=== PATIENT | male | born 1985 | race Caucasian/White ===

== ENCOUNTER 2017-07-22 14:08 | Emergency (ER) | payer SELFPAY ==
[2017-07-22 15:10] VITALS: BP 122/80; PULSE 85; RESP 20; TEMP 37.1; O2SAT 96; BMI 25.2
--- NOTE | 2017-07-22 15:48 | HMH.EDUTC ---
[facility] [place] Disposition Clinical Impression: Hemorrhoid Qualifiers: Hemorrhoid type: unspecified Qualified Code(s): K64.9 - Unspecified hemorrhoids Disposition: Home, Self-Care Condition on Discharge: Good Prescriptions: Hydrocortisone [Anusol-Hc] 30 gm TP Q4H #1 crm.pe.briana Referrals: Matthew Mandel MD [Physician] - 3 days (if symptoms do not improve or worsen ) Time of Disposition: 16:06 Medical Decision Making Vital Signs: 07/22/17 15:10 Temperature 98.8 F Temperature Source Oral Pulse Rate [Right Brachial] 85 Respiratory Rate 20 Blood Pressure [Right Arm] 122/80 Blood Pressure Mean [Right Arm] 94 Blood Pressure Source [Right Arm] Automatic Cuff Blood Pressure Position [Right Arm] Sitting 02 Sat by Pulse Oximetry 96 Oxygen Delivery Method Room Air - Mikel Inquiry Pt receiving controlled substance: No Mikel was queried for this patient: No [facility] [place] HPI - General Stated complaint: hemoroid Time Seen by Provider: 07/22/17 15:54 Mode of Arrival: Ambulatory Source of Information: Patient Limitations: No Limitations Description of Symptoms (Recalled from Triage Doc. by RN): HEMORRHOIDS FOR 5 DAYS AND WON'T GO AWAY. HEENT Symptoms (Recalled from RN notes): No Resp Symptoms (Recalled from RN notes): No Skin Symptoms (Recalled from RN notes): No MS Symptoms (Recalled from RN notes): No Functional Status (Recalled from RN notes): NA - History of Present Illness Provider Complaint: Patient states that he has been having issues with itching,burning and pain associated with hemmorhoids that has been occuring for months now State that he had tried several things he had seen on the internet for comfort but nothing has worked so wanted to come in and get it checked Onset (ago): day(s) Radiation: non-radiation - Related Data Previous Rx's Medication Instructions Recorded Hydrocortisone [Anusol-Hc] 30 gm TP Q4H #1 crm.pe.briana 07/22/17 Allergies Allergy/AdvReac Type Severity Reaction Status Date / Time codeine [CODEINE] Allergy Mild Verified 07/22/17 15:17 Sulfa (Sulfonamide Allergy Mild Verified 07/22/17 15:16 Antibiotics) [SULFA (SULFONAMIDE ANTIBIOTICS)] - Worker's Comp Is this a Worker's Comp case?: No Is this an [facility] Worker's Comp?: No Is this a [place] Worker's Comp?: No [facility] History Medical History: Denies:: Cancer, Diabetes Mellitus Type 1, Diabetes Mellitus Type 2, MRSA Amputation: No Fractures: No - *Social History Smoking Status: Current every day smoker Tobacco Type: cigarettes Alcohol Intake: never - Psychiatric History Expresses thoughts of harming self/others: None Suicide Plan Description: No Plan Physical Exam - General General appearance: alert, in no apparent distress - Respiratory Respiratory exam: Present: normal lung sounds bilaterally. Absent: respiratory distress - Cardiovascular Cardiovascular exam: Present: regular rate, normal rhythm. Absent: JVD - Rectal Exam Rectal exam: Present: hemorrhoids comment: small hemmorhoid observed, skin colored no bleeding, no redness - Neurological Exam Neurological exam: Present: alert, oriented X3
--- NOTE | 2017-07-22 15:52 | ED_ITS ---
[facility] [place] Clinical Impression: Hemorrhoid Qualifiers: Hemorrhoid type: unspecified Qualified Code(s): K64.9 - Unspecified hemorrhoids Disposition: Home, Self-Care Condition on Discharge: Good Prescriptions: Hydrocortisone [Anusol-Hc] 30 gm TP Q4H #1 crm.pe.briana Referrals: Matthew Mandel MD [Physician] - 3 days (if symptoms do not improve or worsen ) Time of Disposition: 16:06 Medical Decision Making Vital Signs: 07/22/17 15:10 Temperature 98.8 F Temperature Source Oral Pulse Rate [Right Brachial] 85 Respiratory Rate 20 Blood Pressure [Right Arm] 122/80 Blood Pressure Mean [Right Arm] 94 Blood Pressure Source [Right Arm] Automatic Cuff Blood Pressure Position [Right Arm] Sitting 02 Sat by Pulse Oximetry 96 Oxygen Delivery Method Room Air - Mikel Inquiry Pt receiving controlled substance: No Mikel was queried for this patient: No [facility] [place] HPI - General Stated complaint: hemoroid Time Seen by Provider: 07/22/17 15:54 Mode of Arrival: Ambulatory Source of Information: Patient Limitations: No Limitations Description of Symptoms (Recalled from Triage Doc. by RN): HEMORRHOIDS FOR 5 DAYS AND WON'T GO AWAY. HEENT Symptoms (Recalled from RN notes): No Resp Symptoms (Recalled from RN notes): No Skin Symptoms (Recalled from RN notes): No MS Symptoms (Recalled from RN notes): No Functional Status (Recalled from RN notes): NA - History of Present Illness Provider Complaint: Patient states that he has been having issues with itching, burning and pain associated with hemmorhoids that has been occuring for months now State that he had tried several things he had seen on the internet for comfort but nothing has worked so wanted to come in and get it checked Onset (ago): day(s) Radiation: non-radiation - Related Data Previous Rx's Medication Instructions Recorded Hydrocortisone [Anusol-Hc] 30 gm TP Q4H #1 crm.pe.briana 07/22/17 Allergies Allergy/AdvReac Type Severity Reaction Status Date / Time codeine [CODEINE] Allergy Mild Verified 07/22/17 15:17 Sulfa (Sulfonamide Allergy Mild Verified 07/22/17 15:16 Antibiotics) [SULFA (SULFONAMIDE ANTIBIOTICS)] - Worker's Comp Is this a Worker's Comp case?: No Is this an [facility] Worker's Comp?: No Is this a [place] Worker's Comp?: No [facility] History Medical History: Denies:: Cancer, Diabetes Mellitus Type 1, Diabetes Mellitus Type 2, MRSA Amputation: No Fractures: No - *Social History Smoking Status: Current every day smoker Tobacco Type: cigarettes Alcohol Intake: never - Psychiatric History Expresses thoughts of harming self/others: None Suicide Plan Description: No Plan Physical Exam - General General appearance: alert, in no apparent distress - Respiratory Respiratory exam: Present: normal lung sounds bilaterally. Absent: respiratory distress - Cardiovascular Cardiovascular exam: Present: regular rate, normal rhythm. Absent: JVD - Rectal Exam Rectal exam: Present: hemorrhoids comment: small hemmorhoid observed, skin colored no bleeding, no redness - Neurological Exam Neurological exam: Present: alert, oriented X3
== END 2017-07-22 16:10 | disposition home or self-care (01) ==
PROVIDERS: Emergency Provider Nurse Practitioner
DX: K64.9 Unspecified hemorrhoids (principal); F17.210 Nicotine dependence, cigarettes, uncomplicated; Z88.2 Allergy status to sulfonamides; Z88.6 Allergy status to analgesic agent
CPT/HCPCS: 99201

== ENCOUNTER 2017-08-12 01:14 | Emergency (ER) | payer SELFPAY ==
[2017-08-12 01:16] VITALS: BP 150/90; PULSE 118; RESP 118; TEMP 36.9; O2SAT 98; BMI 22.7
--- NOTE | 2017-08-12 01:37 | PC.NURSE ---
poison controll called they advised symptomatic and supportive care fluids and benzos if needed for seizures or tachycardia.
[2017-08-12 02:09] VITALS: BP 145/92; PULSE 88; RESP 18; TEMP 36.8; O2SAT 100
[2017-08-12 02:29] LABS: Basophils % 0.6 % (0.1-2.0); Eosinophils # 0.1 K/mm3 (0.0-0.4); Eosinophils % 2.2 % (0.1-12.0); Hematocrit 43.3 % (42.0-52.0); Hemoglobin 14.9 g/dL (14.1-18.0); Lymphocytes # 1.2 K/mm3 (0.7-4.5); Lymphocytes % 25.5 K/mm3 (10-50); Mean Corpuscular HGB Conc 34.5 g/dL (31.8-35.4); Mean Corpuscular Hemoglobin 30.2 pg (27.0-31.2); Mean Corpuscular Volume 87.5 fl (80-94); Mean Platelet Volume 7.1 fl (7.4-10.4); Monocytes # 0.5 K/mm3 (0.1-1.0); Monocytes % 9.5 % (1.7-9.3); Neutrophils # 2.9 K/mm3 (1.8-7.8); Neutrophils % 62.3 % (37.0-80.0); Platelet Count 265 K/mm3 (142-424); Red Blood Count 4.95 M/mm3 (4.60-6.20); White Blood Count 4.7 K/mm3 (4.8-10.8)
--- NOTE | 2017-08-12 02:35 | HMH.EDOD ---
ED Disposition Clinical Impression: Drug abuse, episodic use Disposition: Home, Self-Care Condition on Discharge: Good Instructions: DI for Drug Overdose in Adults Additional Instructions: see rehab center for follow up - Critical Care Critical Care Time: No Attestation: On , the high probability of a clinically significant, sudden or life threatening deterioration of the following system(s) required my full and direct attention, intervention and personal management. The time I documented below is in addition to time spent performing reported procedures but includes the following listed in this critical care notation. Medical Decision Making - Medical Records Medical records reviewed: Yes: I reviewed the patient's medical records. Vital Signs: 08/12/17 01:16 08/12/17 02:09 08/12/17 04:33 Temperature 98.5 F 98.2 F 98.3 F Temperature Source Oral Oral Oral Pulse Rate [Right] 118 H 88 89 Respiratory Rate 118 H 18 18 Blood Pressure [Right Arm] 150/90 145/92 134/88 Blood Pressure Mean [Right Arm] 110 109 103 Blood Pressure Source [Right Arm] Automatic Cuff Automatic Cuff Automatic Cuff Blood Pressure Position [Right Arm] Sitting Sitting 02 Sat by Pulse Oximetry 98 100 100 Oxygen Delivery Method Room Air Room Air Room Air - Lab Data Lab results reviewed: Yes: I reviewed the patient's lab results. Lab Results 08/12/17 02:20: WBC 4.7 L, RBC 4.95, Hgb 14.9, Hct 43.3, MCV 87.5, MCH 30.2, MCHC 34.5, RDW 13.0, Plt Count 265, MPV 7.1 L, Neut % (Auto) 62.3, Lymph % (Auto) 25.5, [place] % (Auto) 9.5 H, Eos % (Auto) 2.2, Baso % (Auto) 0.6, Neut # (Auto) 2.9, Lymph # (Auto) 1.2, [place] # (Auto) 0.5, Eos # (Auto) 0.1, Baso # (Auto) 0.0 08/12/17 02:20: Sodium 136, Potassium 3.2 L, Chloride 100, Carbon Dioxide 25, Anion Gap 14.2, BUN 12, Creatinine 1.02, Estimated Creat Clear 98, Estimated GFR 85, Est GFR ( Amer) 103, Glucose 110 H, Calcium 8.8, Total Bilirubin 0.6, AST 21, ALT 31, Alkaline Phosphatase 67, Total Protein 7.1, Albumin 4.0, Globulin 3.1, Albumin/Globulin Ratio 1.3, Plasma/Serum Alcohol 0 08/12/17 02:20: Total Creatine Kinase 186, CK-MB (CK-2) 3.0, CK-MB (CK-2) Rel Index 1.6, Troponin I < 0.02 08/12/17 02:32: Urine Opiates Screen Negative, Ur Barbituates Screen Negative, Ur Phencyclidine Scrn Negative, Ur Amphetamines Screen Positive H, U Methamphetamines Scrn Negative, U Benzodiazepines Scrn Negative, Urine Cocaine Screen Negative, U Marijuana (THC) Screen Positive H 08/12/17 02:32: Urine Color Dark yellow, Urine Appearance Clear, Urine pH 6.0, Ur Specific [place] >= 1.030, Urine Protein Negative, Urine Glucose (UA) Negative, Urine Ketones Negative, Urine Blood Negative, Urine Nitrate Negative, Urine Bilirubin Negative, Urine Urobilinogen 1.0, Ur Leukocyte Esterase Negative Result diagrams: 08/12/17 02:20 08/12/17 02:20 Orders (Tests/Meds): ED MEDICATIONS Discontinued Medications Generic Name Dose Route Start Last Admin Trade Name Freq PRN Reason Stop Dose Admin Sodium Chloride 1,000 mls @ 999 mls/hr 08/12/17 01:45 08/12/17 01:51 Sod Chloride 0.9% 1000ml Bag IV 08/12/17 02:45 999 mls/hr .Q1H1M THAO Administration ORDERS Category Date Time Status UA [Urinalysis and Microscopic] Stat Lab 08/12/17 02:32 Results - Mikel Inquiry Pt receiving controlled substance: No Overdose HPI - General Chief Complaint: Overdose Stated Complaint: OVERDOSE Time Seen by Provider: 08/12/17 02:36 Mode of Arrival: Ambulatory Source of Information: Patient, Parent(s), Medical Record Limitations: No Limitations Description of Symptoms (Recalled from ER Triage Doc. by RN): PT REPORTS HE SNORTED METH AT 1145 PM, AND SINCE THEN HIS HEART HAS BEEN RACING, CHEST ACHING, BODY GOING NUMB, AND HIGH ANXIETY - History of Present Illness HPI Narrative: pt with recent use of nasal meth with inc anxiety and inc hr w/o chest pain or syncope MD complaint: other (use of illeg drug ) Onset (ago): hour(s
[2017-08-12 02:39] LABS: Microscopic, Urine URINE MICROSCOPIC (MICROSCOPIC)
--- NOTE | 2017-08-12 02:39 | ED_ITS ---
ED Disposition Clinical Impression: Drug abuse, episodic use Disposition: Home, Self-Care Condition on Discharge: Good Instructions: DI for Drug Overdose in Adults Additional Instructions: see rehab center for follow up - Critical Care Critical Care Time: No Attestation: On , the high probability of a clinically significant, sudden or life threatening deterioration of the following system(s) required my full and direct attention, intervention and personal management. The time I documented below is in addition to time spent performing reported procedures but includes the following listed in this critical care notation. Medical Decision Making - Medical Records Medical records reviewed: Yes: I reviewed the patient's medical records. Vital Signs: 08/12/17 01:16 08/12/17 02:09 08/12/17 04:33 Temperature 98.5 F 98.2 F 98.3 F Temperature Source Oral Oral Oral Pulse Rate [Right] 118 H 88 89 Respiratory Rate 118 H 18 18 Blood Pressure [Right Arm] 150/90 145/92 134/88 Blood Pressure Mean [Right Arm] 110 109 103 Blood Pressure Source [Right Arm] Automatic Cuff Automatic Cuff Automatic Cuff Blood Pressure Position [Right Arm] Sitting Sitting 02 Sat by Pulse Oximetry 98 100 100 Oxygen Delivery Method Room Air Room Air Room Air - Lab Data Lab results reviewed: Yes: I reviewed the patient's lab results. Lab Results 08/12/17 02:20: WBC 4.7 L, RBC 4.95, Hgb 14.9, Hct 43.3, MCV 87.5, MCH 30.2, MCHC 34.5, RDW 13.0, Plt Count 265, MPV 7.1 L, Neut % (Auto) 62.3, Lymph % (Auto ) 25.5, [place] % (Auto) 9.5 H, Eos % (Auto) 2.2, Baso % (Auto) 0.6, Neut # (Auto) 2.9, Lymph # (Auto) 1.2, [place] # (Auto) 0.5, Eos # (Auto) 0.1, Baso # (Auto) 0.0 08/12/17 02:20: Sodium 136, Potassium 3.2 L, Chloride 100, Carbon Dioxide 25, Anion Gap 14.2, BUN 12, Creatinine 1.02, Estimated Creat Clear 98, Estimated GFR 85, Est GFR ( Amer) 103, Glucose 110 H, Calcium 8.8, Total Bilirubin 0.6, AST 21, ALT 31, Alkaline Phosphatase 67, Total Protein 7.1, Albumin 4.0, Globulin 3.1, Albumin/Globulin Ratio 1.3, Plasma/Serum Alcohol 0 08/12/17 02:20: Total Creatine Kinase 186, CK-MB (CK-2) 3.0, CK-MB (CK-2) Rel Index 1.6, Troponin I < 0.02 08/12/17 02:32: Urine Opiates Screen Negative, Ur Barbituates Screen Negative, Ur Phencyclidine Scrn Negative, Ur Amphetamines Screen Positive H, U Methamphetamines Scrn Negative, U Benzodiazepines Scrn Negative, Urine Cocaine Screen Negative, U Marijuana (THC) Screen Positive H 08/12/17 02:32: Urine Color Dark yellow, Urine Appearance Clear, Urine pH 6.0, Ur Specific [place] >= 1.030, Urine Protein Negative, Urine Glucose (UA) Negative, Urine Ketones Negative, Urine Blood Negative, Urine Nitrate Negative, Urine Bilirubin Negative, Urine Urobilinogen 1.0, Ur Leukocyte Esterase Negative Result diagrams: 08/12/17 02:20 08/12/17 02:20 Orders (Tests/Meds): ED MEDICATIONS Discontinued Medications Generic Name Dose Route Start Last Admin Trade Name Freq PRN Reason Stop Dose Admin Sodium Chloride 1,000 mls @ 999 mls/hr 08/12/17 01:45 08/12/17 01:51 Sod Chloride 0.9% 1000ml Bag IV 08/12/17 02:45 999 mls/hr .Q1H1M THAO Administration ORDERS Category Date Time Status UA [Urinalysis and Microscopic] Stat Lab 08/12/17 02:32 Results - Mikel Inquiry Pt receiving controlled substance: No Overdose HPI - General Chief Complaint: Overdose S
[2017-08-12 02:41] LABS: Alanine Aminotransferase 31 U/L (12-78); Albumin/Globulin Ratio 1.3 (1.1-1.8); Alkaline Phosphatase 67 U/L (46-116); Anion Gap 14.2 mEq/L (5-15); Aspartate Amino Transferase 21 U/L (15-37); Bilirubin,Total 0.6 mg/dL (0.2-1.0); Blood Urea Nitrogen 12 mg/dL (7-18); Calcium 8.8 mg/dL (8.5-10.1); Carbon Dioxide 25 mmol/L (21.0-32.0); Chloride 100 mmol/L (98-107); Creatinine Clearance Estimated 98 mL/min (0-300); Creatinine,Serum 1.02 mg/dL (0.70-1.30); Estimated Glomerular Filt Rate 85 ml/min (>60); GFR (African American) 103 ML/MIN (>60); Globulin 3.1 gm/dl (1.3-3.2); Glucose 110 mg/dL (74-106); Potassium 3.2 mmoL/L (3.5-5.1); Sodium 136 mmol/L (136-145); Total Protein,Serum 7.1 gm/dL (6.4-8.2)
[2017-08-12 02:46] LABS: Ethyl Alcohol 0 mg/dL (0-99)
[2017-08-12 02:55] LABS: Appearance,Urine CLEAR (Clear); Bilirubin,Urine Negative (Negative); Blood, Urine Negative (Negative); Glucose,Urine (UA) Negative (Negative); Ketones,Urine Negative (Negative); Leukocyte Esterase,Urine Negative (Negative); Nitrate,Urine Negative (Negative); Protein,Urine Negative (Negative); Specific Gravity, Urine >= 1.030 (1.005-1.030)
[2017-08-12 02:57] LABS: Color,Urine Dark Yellow (Yellow)
[2017-08-12 02:57] LABS: CKMB Relative Index 1.6 U/L (0-4.0); Creatine Kinase 186 U/L (39-308); Troponin I < 0.02 ng/ml (0.00-0.06)
[2017-08-12 03:00] LABS: Amphetamine/Metha Screen,Urine Positive ng/mL (<1000); Barbiturates Screen,Urine Negative ng/mL (<200); Benzodiazepines Screen,Urine Negative ng/mL (200); Cannabinoid Screen,Urine Positive ng/mL (<50); Cocaine Screen,Urine Negative ng/g (<300); Methadone Screen,Urine Negative ng/mL (<300); Opiate Screen,Urine Negative ng/mL (<300); Phencyclidine Screen,Urine Negative ng/mL (<25)
--- NOTE | 2017-08-12 04:30 | PC.NURSE ---
POISON CONTROL CALLED TO CHECK ON PT
[2017-08-12 04:33] VITALS: BP 134/88; PULSE 89; RESP 18; TEMP 36.8; O2SAT 100
[2017-08-12 05:20] LABS: Bacteria,Urine 1+ /lpf
== END 2017-08-12 05:07 | disposition home or self-care (01) ==
PROVIDERS: Emergency Provider Emergency Medicine
DX: T43.622A Poisoning by amphetamines, intentional self-harm, initial encounter (principal); T40.7X2A Poisoning by cannabis (derivatives), intentional self-harm, initial encounter; F41.9 Anxiety disorder, unspecified; R00.0 Tachycardia, unspecified; F17.210 Nicotine dependence, cigarettes, uncomplicated; Z88.2 Allergy status to sulfonamides; Z88.6 Allergy status to analgesic agent
CPT/HCPCS: 80053; 80305; 81001; 82550; 82553; 84484; 85025; 96365; 99284

== ENCOUNTER 2017-09-22 12:22 | Emergency (ER) | payer SELFPAY ==
[2017-09-22 12:45] VITALS: BP 138/89; PULSE 61; RESP 20; TEMP 36.8; O2SAT 98; BMI 25.0
--- NOTE | 2017-09-22 12:55 | HMH.EDUTC ---
[facility] [place] Disposition Clinical Impression: URI (upper respiratory infection) Qualifiers: URI type: unspecified URI Qualified Code(s): J06.9 - Acute upper respiratory infection, unspecified Disposition: Home, Self-Care Condition on Discharge: Good Instructions: Sore Throat, DI for Cough -- Adult Additional Instructions: * Monitor Temp. Tylenol and/or Ibuprofen as needed. ER if fever is no less than 101 despite alternating Tylenol and Ibuprofen * Encourage fluids, water, Gatorade, powerade, pedialyte if /toddler/or child * Warm salt water gargles for throat irritation *Warm fluids *Sore throat lozenges *Sleep elevated *humidifier or vaporizer Lots of rest Increase fluids, water, Gatorade, powerade *Flonase 2 sprays each nostril daily but may take 2-3 days to notice improvement with it *Bromfed may cause drowsiness. Know how it effect you or your child. Before driving, caring for small children or sending your child to school *Your throat swab was sent to lab for culture. Those results area typically sent to your primary care physician. Be sure to follow up in 2-3 days if no improvement so they can review those results and treat if necessary If you dont have primary care I recommend you get one, but in the mean time you will have to return to a walk in clinic Follow up IMMEDIATELY for new or worsening of symptoms OR no noticeable improvement over the next 48-72 hours. 911 immediately for any life threatening symptoms such as chest pain or difficulty breathing Prescriptions: Promethazine/Dextromethorphan [Promethazine-Dm Syrup] 5 ml PO Q4HP PRN #300 ml MDD 30ML/DAY PRN Reason: Cough Azithromycin [Z-Raz 250mg Tab] 250 mg PO UD DOSE PK #6 tab predniSONE [Prednisone 20mg Tab] 20 mg PO BID #10 tab Forms: Work/School Release Time of Disposition: 13:14 Medical Decision Making - Medical Records Medical records reviewed: Yes: I reviewed the patient's medical records. Vital Signs: 09/22/17 12:45 Temperature 98.2 F Temperature Source Temporal Artery Scan Pulse Rate [Brachial] 61 Respiratory Rate 20 Blood Pressure [Right Arm] 138/89 Blood Pressure Mean [Right Arm] 105 Blood Pressure Source [Right Arm] Automatic Cuff Blood Pressure Position [Right Arm] Sitting 02 Sat by Pulse Oximetry 98 Oxygen Delivery Method Room Air - Lab Data Lab results reviewed: Yes: I reviewed the patient's lab results. - Mikel Inquiry Pt receiving controlled substance: No Mikel was queried for this patient: No - Reevaluation(s) Time: 13:12 Reevaluation #1: Flu swab negative [facility] [place] HPI - General Stated complaint: weak,chest congestion Mode of Arrival: Ambulatory Source of Information: Patient Limitations: No Limitations Description of Symptoms (Recalled from Triage Doc. by RN): BODY FATIGUE, COUGHING AND BURNING IN CHEST 1.5 DAYS HEENT Symptoms (Recalled from RN notes): Yes Resp Symptoms (Recalled from RN notes): Yes Skin Symptoms (Recalled from RN notes): No MS Symptoms (Recalled from RN notes): No Functional Status (Recalled from RN notes): NA - History of Present Illness Provider Complaint: Patient state that he has been having cough, sore throat sinus congestion and drainage State that daughter recently had the flu and he has an infant at home and was worried that he may have it State that he has been having body aches and headaches State that he is unsure if he has had fever or not - Related Data Previous Rx's Medication Instructions Recorded Azithromycin [Z-Raz 250mg Tab] 250 mg PO UD DOSE PK #6 tab 09/22/17 Promethazine/Dextromethorphan 5 ml PO Q4HP PRN #300 ml MDD 09/22/17 [Promethazine-Dm Syrup] 30ML/DAY predniSONE [Prednisone 20mg 20 mg PO BID #10 tab 09/22/17 Tab] Allergies Allergy/AdvReac Type Severity Reaction Status Date / Time codeine [CODEINE] Allergy Mild Verified 07/22/17 15:17 Sulfa (Sulfonamide Allergy Mild Verified 07/22/17 15:16 Antibiotics) [SULFA (SULFONAMIDE ANTIB
--- NOTE | 2017-09-22 13:01 | ED_ITS ---
[facility] [place] Impression: URI (upper respiratory infection) Qualifiers: URI type: unspecified URI Qualified Code(s): J06.9 - Acute upper respiratory infection, unspecified Disposition: Home, Self-Care Condition on Discharge: Good Instructions: Sore Throat, DI for Cough -- Adult Additional Instructions: * Monitor Temp. Tylenol and/or Ibuprofen as needed. ER if fever is no less than 101 despite alternating Tylenol and Ibuprofen * Encourage fluids, water, Gatorade, powerade, pedialyte if /toddler/or child * Warm salt water gargles for throat irritation *Warm fluids *Sore throat lozenges *Sleep elevated *humidifier or vaporizer Lots of rest Increase fluids, water, Gatorade, powerade *Flonase 2 sprays each nostril daily but may take 2-3 days to notice improvement with it *Bromfed may cause drowsiness. Know how it effect you or your child. Before driving, caring for small children or sending your child to school *Your throat swab was sent to lab for culture. Those results area typically sent to your primary care physician. Be sure to follow up in 2-3 days if no improvement so they can review those results and treat if necessary If you don? t have primary care I recommend you get one, but in the mean time you will have to return to a walk in clinic Follow up IMMEDIATELY for new or worsening of symptoms OR no noticeable improvement over the next 48-72 hours. 911 immediately for any life threatening symptoms such as chest pain or difficulty breathing Prescriptions: Promethazine/Dextromethorphan [Promethazine-Dm Syrup] 5 ml PO Q4HP PRN #300 ml MDD 30ML/DAY PRN Reason: Cough Azithromycin [Z-Raz 250mg Tab] 250 mg PO UD DOSE PK #6 tab predniSONE [Prednisone 20mg Tab] 20 mg PO BID #10 tab Forms: Work/School Release Time of Disposition: 13:14 Medical Decision Making - Medical Records Medical records reviewed: Yes: I reviewed the patient's medical records. Vital Signs: 09/22/17 12:45 Temperature 98.2 F Temperature Source Temporal Artery Scan Pulse Rate [Brachial] 61 Respiratory Rate 20 Blood Pressure [Right Arm] 138/89 Blood Pressure Mean [Right Arm] 105 Blood Pressure Source [Right Arm] Automatic Cuff Blood Pressure Position [Right Arm] Sitting 02 Sat by Pulse Oximetry 98 Oxygen Delivery Method Room Air - Lab Data Lab results reviewed: Yes: I reviewed the patient's lab results. - Mikel Inquiry Pt receiving controlled substance: No Mikel was queried for this patient: No - Reevaluation(s) Time: 13:12 Reevaluation #1: Flu swab negative [facility] [place] - General Stated complaint: weak,chest congestion Mode of Arrival: Ambulatory Source of Information: Patient Limitations: No Limitations Description of Symptoms (Recalled from Triage Doc. by RN): BODY FATIGUE, COUGHING AND BURNING IN CHEST 1.5 DAYS HEENT Symptoms (Recalled from RN notes): Yes Resp Symptoms (Recalled from RN notes): Yes Skin Symptoms (Recalled from RN notes): No MS Symptoms (Recalled from RN notes): No Functional Status (Recalled from RN notes): NA - History of Present Illness Provider Complaint: Patient state that he has been having cough, sore throat sinus congestion and drainage State that daughter recently had the flu and he has an at home and was worried that he may have it State that he has been having body aches and headaches State that he is unsure if he has had fever or not - Related Data Previous Rx's
[2017-09-22 13:15] LABS: UTC Influenza A Antigen Negative (Negative); UTC Influenza B Antigen Negative (Negative)
[2017-09-22 13:24] VITALS: BP 138/89; PULSE 69; RESP 20; TEMP 36.8; O2SAT 98
== END 2017-09-22 13:25 | disposition home or self-care (01) ==
PROVIDERS: Emergency Provider Nurse Practitioner
DX: J06.9 Acute upper respiratory infection, unspecified (principal); F17.210 Nicotine dependence, cigarettes, uncomplicated; Z88.2 Allergy status to sulfonamides
CPT/HCPCS: 87804; 99202

== ENCOUNTER 2019-11-18 13:05 | Emergency (ER) | payer OTHER, SELFPAY ==
[2019-11-18 13:24] VITALS: BP 116/78; PULSE 83; RESP 16; TEMP 36.7; O2SAT 94; BMI 26.4
--- NOTE | 2019-11-18 13:47 | HMH.EDUTC ---
[facility] [place] Disposition Clinical Impression: Right arm cellulitis Disposition: Home, Self-Care Condition on Discharge: Good Instructions: Cellulitis Additional Instructions: Keep the wounds clean and dry. Follow up with your regular doctor. Take the antibiotics as directed and apply the topical antibiotics as directed. Watch the wound for signs of worsening infection, such as worsening redness, drainage, swelling, etc. GO TO THE ER FOR ANY WORSENING SYMPTOMS Prescriptions: Mupirocin [Bactroban 2% Ointment 22gm tube] 1 applicatio TP TID 7 Days #1 tube Transmission Status: Received by [facility] clindamycin HCL [Clindamycin HCl 300mg Cap] 300 mg PO Q6 10 Days #40 cap Transmission Status: Received by [facility] Referrals: Provider,ReferralMD [Primary Care Provider] - Time of Disposition: 13:51 Medical Decision Making - Medical Records Medical records reviewed: No: I reviewed the patient's medical records. - Mikel Inquiry Pt receiving controlled substance: No Vital Signs: 11/18/19 13:24 11/18/19 14:01 Temperature 98.1 F 98.1 F Temperature Source Oral Pulse Rate 83 Pulse Rate [Right Brachial] 83 Respiratory Rate 16 16 Blood Pressure 116/78 Blood Pressure [Right Arm] 116/78 Blood Pressure Mean [Right Arm] 90 Blood Pressure Source [Right Arm] Automatic Cuff Blood Pressure Position [Right Arm] Sitting 02 Sat by Pulse Oximetry 94 L Oxygen Delivery Method Room Air Orders (Tests/Meds): ED MEDICATIONS Discontinued Medications Generic Name Dose Route Start Last Admin Trade Name Freq PRN Reason Stop Dose Admin Ceftriaxone Sodium 1 gm 11/18/19 13:31 11/18/19 13:40 Rocephin 1gm Vial IM 11/18/19 13:32 1 gm ONCE ONE Administration Protocol Lidocaine HCl 0 ml 11/18/19 13:31 11/18/19 13:40 Lidocaine 1% 10ml Mdv IM 11/18/19 13:32 2.1 ml ONCE ONE Administration ORDERS Category Date Time Status Wound Culture and Gram Stain Stat Micro 11/18/19 13:20 Results [facility] [place] HPI - General Stated complaint: spot on R arm Time Seen by Provider: 11/18/19 13:47 Mode of Arrival: Ambulatory Source of Information: Patient Limitations: No Limitations Description of Symptoms (Recalled from Triage Doc. by RN): PATIENT STATES HE ACCIDENTALY SCRATCHED HIS ARM ON A NAIL 3 DAYS AGO; STATES HE HAS PLAYED WITH IT AND SCRATCHED IT AND NOW IT IS INFECTED. PURULENT DRAINAGE IS NOTED. DENIES FEVER. PATIENT STATES HE IS UP TO DATE ON HIS TETANUS VACCINE HEENT Symptoms (Recalled from RN notes): No Resp Symptoms (Recalled from RN notes): No Skin Symptoms (Recalled from RN notes): Yes MS Symptoms (Recalled from RN notes): No Functional Status (Recalled from RN notes): WNL - History of Present Illness Provider Complaint: He states that 3 days ago he bumped into a nail on his wall at home with his right arm. Since then the wound has became red around it and it has began draining clear drainage. He denies any fever or chills. - Related Data Previous Rx's Medication Instructions Recorded Mupirocin [Bactroban 2% Ointment 1 applicatio TP TID 7 Days #1 tube 11/18/19 22gm tube] clindamycin HCL [Clindamycin HCl 300 mg PO Q6 10 Days #40 cap 11/18/19 300mg Cap] Allergies Allergy/AdvReac Type Severity Reaction Status Date / Time codeine [CODEINE] Allergy Mild Verified 07/22/17 15:17 Sulfa (Sulfonamide Allergy Mild Verified 07/22/17 15:16 Antibiotics) [SULFA (SULFONAMIDE ANTIBIOTICS)] - Worker's Comp Is this a Worker's Comp case?: No H History - Hepatitis A Screen Drug use history?: No High risk sexual behaviors?: No History of sexually transmitted infection?: No Currently employed?: No Childcare worker?: No Do you have indoor plumbing?: Yes Do you have electricity?: Yes Attestation statement:: This patient has been screened for Hepatitis A risk factors. I have reviewed the patient's past medical h
[2019-11-18 14:01] VITALS: BP 116/78; PULSE 83; RESP 16; TEMP 36.7; O2SAT 94
== END 2019-11-18 14:01 | disposition home or self-care (01) ==
PROVIDERS: Emergency Provider Nurse Practitioner Family
DX: L03.113 Cellulitis of right upper limb (principal)
CPT/HCPCS: 87070; 87077; 87186; 87205; 96372; 99202

== ENCOUNTER 2020-01-15 00:45 | Emergency (ER) | payer OTHER, SELFPAY ==
[2020-01-15 00:52] VITALS: BP 137/86; PULSE 73; RESP 16; TEMP 37.2; O2SAT 99; BMI 27.3
--- NOTE | 2020-01-15 01:00 | HMH.EDMCLR ---
ED Disposition Clinical Impression: Medical clearance for incarceration Disposition: Home, Self-Care Condition on Discharge: Good Instructions: DI for Drug or Alcohol Withdrawal Additional Instructions: see pcp for follow up Referrals: Provider,Referral, [Primary Care Provider] - - Critical Care Critical Care Time: No Attestation: On 01/15/20, the high probability of a clinically significant, sudden or life threatening deterioration of the following system(s) required my full and direct attention, intervention and personal management. The time I documented below is in addition to time spent performing reported procedures but includes the following listed in this critical care notation. Medical Decision Making - Medical Records Medical records reviewed: Yes: I reviewed the patient's medical records. - Mikel Inquiry Pt receiving controlled substance: No Vital Signs: 01/15/20 00:52 Temperature 98.9 F Temperature Source Oral Pulse Rate [Right] 73 Respiratory Rate 16 Blood Pressure [Right Arm] 137/86 Blood Pressure Mean [Right Arm] 103 Blood Pressure Source [Right Arm] Automatic Cuff Blood Pressure Position [Right Arm] Sitting 02 Sat by Pulse Oximetry 99 Oxygen Delivery Method Room Air Medical Clearance HPI - General Stated complaint: Medical Clearance Time Seen by Provider: 01/15/20 01:01 Mode of Arrival: Ambulatory Source of Information: Patient Limitations: No Limitations Description of Symptoms (Recalled from ER Triage Doc. by RN): Here via S.O. for medical Clearance - History of Present Illness HPI Narrative: no specific c/o he has no sx but says he known a sanjeev who went to [place] but not known to have jamesid complaint: medical clearance requested Onset (ago): hour(s) Reason for Medical Clearance: medical condition Place: home Alleged Intoxication: No Traumatic Symptoms: denies traumatic injury Associated Symptoms: denies other symptoms Treatments Prior to Arrival: none Home medications: Previous Rx's Medication Instructions Recorded Mupirocin [Bactroban 2% Ointment 1 applicatio TP TID 7 Days #1 tube 11/18/19 22gm tube] clindamycin HCL [Clindamycin HCl 300 mg PO Q6 10 Days #40 cap 11/18/19 300mg Cap] Allergies/Adverse reactions: Allergies Allergy/AdvReac Type Severity Reaction Status Date / Time codeine [CODEINE] Allergy Mild Verified 07/22/17 15:17 Sulfa (Sulfonamide Allergy Mild Verified 07/22/17 15:16 Antibiotics) [SULFA (SULFONAMIDE ANTIBIOTICS)] [facility] History - Hepatitis A Screen Drug use history?: No High risk sexual behaviors?: No History of sexually transmitted infection?: No Currently employed?: No Childcare worker?: No Do you have indoor plumbing?: Yes Do you have electricity?: Yes Attestation statement:: This patient has been screened for Hepatitis A risk factors. I have reviewed the patient's past medical history: Yes Medical History: Denies:: Cancer, Diabetes Mellitus Type 1, Diabetes Mellitus Type 2, MRSA Laterality Cases: Bilateral: Myringotomy (Ear Tubes), Tonsillectomy Amputation: No Fractures: No - Social History Smoking Status: Current every day smoker Tobacco Type: cigarettes # Packs/Day (cigarettes): 2 Alcohol Intake: never Alcohol Intake Frequency:: holidays/special occasions only Substance Use Type: heroin Last Used Substance: just [employer] Occupational Status: unemployed Housing: house ROS Obtained: Yes All systems reviewed & no additional complaints - Constitutional Constitutional: Denies fever(s) - Eyes Eyes: Denies change in vision - ENT Ears, Nose, Mouth, and Throat: Denies sore throat - Cardiovascular Cardiovascular: Denies chest pain - Respiratory Respiratory: No cough - Gastrointestinal Gastrointestingal: Denies: vomiting - Genitourinary Male Genitourinary: Denies flank pain - Musculoskeletal Musculoskeletal: Denies joint pain - Integumentary/Breasts Skin
[2020-01-15 01:12] VITALS: BP 137/86; PULSE 73; RESP 16; TEMP 37.2; O2SAT 99
== END 2020-01-15 01:13 | disposition home or self-care (01) ==
PROVIDERS: Emergency Provider Emergency Medicine
DX: Z00.8 Encounter for other general examination (principal)
CPT/HCPCS: 99282

== ENCOUNTER 2020-04-03 10:45 | Emergency (ER) | payer OTHER, SELFPAY ==
[2020-04-03 10:54] VITALS: BP 150/71; PULSE 81; RESP 19; TEMP 36.6; O2SAT 98; BMI 27.3
--- NOTE | 2020-04-03 11:03 | HMH.EDUTC ---
[facility] [place] Impression: Bitten by other birds, initial encounter, Cellulitis of finger of left hand, Cellulitis of finger of right hand Disposition: Home, Self-Care Condition on Discharge: Good Instructions: Cellulitis Additional Instructions: Keep the wounds clean and dry. Follow up with your primary care physician. Apply the topical antibiotic cream as directed. Watch the wounds for signs of worsening infection, such as worsening swelling, drainage, redness, etc. GO TO THE ER FOR ANY WORSENING SYMPTOMS OR CONCERNS Prescriptions: Amoxicillin/Potassium Clav [Augmentin 875-125 Tablet] 1 tab PO Q12H 10 Days #20 tab Transmission Status: [facility] Mupirocin [Bactroban 2% Ointment 22gm tube] 1 applicatio TP TID 7 Days #1 tube Transmission Status: Received by [facility] Doxycycline Hyclate [Doxycycline 100mg Capsule] 100 mg PO Q12 10 Days #20 cap Transmission Status: Received by [facility] Referrals: PCP,No [Primary Care Provider] - Time of Disposition: 11:21 Medical Decision Making - Medical Records Medical records reviewed: No: I reviewed the patient's medical records. - Mikel Inquiry Pt receiving controlled substance: No Vital Signs: 04/03/20 10:54 04/03/20 11:25 Temperature 97.9 F 97.9 F Temperature Source Oral Pulse Rate 81 Pulse Rate [Right Brachial] 81 Respiratory Rate 19 19 Blood Pressure 150/71 H Blood Pressure [Right Arm] 150/71 H Blood Pressure Mean [Right Arm] 97 Blood Pressure Source [Right Arm] Automatic Cuff Blood Pressure Position [Right Arm] Sitting 02 Sat by Pulse Oximetry 98 Oxygen Delivery Method Room Air Orders (Tests/Meds): ED MEDICATIONS Discontinued Medications Generic Name Dose Route Start Last Admin Trade Name Freq PRN Reason Stop Dose Admin Ceftriaxone Sodium 1 gm 04/03/20 11:03 04/03/20 11:17 Rocephin 1gm Vial IM 04/03/20 11:04 1 gm ONCE ONE Administration Protocol Lidocaine HCl 0 ml 04/03/20 11:03 04/03/20 11:17 Lidocaine 1% 10ml Mdv IM 04/03/20 11:04 2.1 ml ONCE ONE Administration ORDERS Category Date Time Status Wound Culture and Gram Stain Stat Micro 04/03/20 11:30 Results [facility] [place] - General Stated complaint: chicken bite on thumb Time Seen by Provider: 04/03/20 10:55 Mode of Arrival: Ambulatory Source of Information: Patient Limitations: No Limitations Description of Symptoms (Recalled from Triage Doc. by RN): PATIENT C/O CHICKEN BITE TO RIGHT THUMB AND SWELLING/PAIN TO LEFT THUMB (NO KNOWN INJURY). BOTH OCCURED FRIDAY HEENT Symptoms (Recalled from RN notes): No Resp Symptoms (Recalled from RN notes): No Skin Symptoms (Recalled from RN notes): Yes MS Symptoms (Recalled from RN notes): No Functional Status (Recalled from RN notes): WNL - History of Present Illness Provider Complaint: He states that 3 to 4 days ago he was attacked by his rooster. It bit on his right and left thumbs. He thought the wounds would be ok and heal, but since yesterday the wounds have began to swell and have clear drainage. He denies any other injury. He is not diabetic that he knows of. He states that it has been less than 5 years since the last time he had a tetanus immunization. - Related Data Previous Rx's Medication Instructions Recorded Amoxicillin/Potassium Clav 1 tab PO Q12H 10 Days #20 tab 04/03/20 [Augmentin 875-125 Tablet] Doxycycline Hyclate [Doxycycline 100 mg PO Q12 10 Days #20 cap 04/03/20 100mg Capsule] Mupirocin [Bactroban 2% Ointment 1 applicatio TP TID 7 Days #1 tube 04/03/20 22gm tube] Allergies Allergy/AdvReac Type Severity Reaction Status Date / Time codeine [CODEINE] Allergy Mild Verified 07/22/17 15:17 Sulfa (Sulfonamide Allergy Mild Verified 07/22/17 15:16 Antibiotics) [SULFA (SULFONAMIDE ANTIBIOTICS)] - Worker's Comp Is this a Worker's Comp case?: No [facility] History - He
[2020-04-03 11:25] VITALS: BP 150/71; PULSE 81; RESP 19; TEMP 36.6; O2SAT 98
== END 2020-04-03 11:27 | disposition home or self-care (01) ==
PROVIDERS: Emergency Provider Nurse Practitioner Family
DX: L03.011 Cellulitis of right finger (principal); L03.012 Cellulitis of left finger; W61.91XA Bitten by other birds, initial encounter; F17.210 Nicotine dependence, cigarettes, uncomplicated; Z88.2 Allergy status to sulfonamides; Z88.5 Allergy status to narcotic agent
CPT/HCPCS: 87070; 87077; 87186; 87205; 96372; 99202

== ENCOUNTER 2020-11-02 22:09 | Emergency (ER) | payer OTHER, SELFPAY ==
--- NOTE | 2020-11-02 22:06 | ECG_ITS ---
APPROVED REPORT Exam: Resting ECG HR:71 bpm ECG Measurements Heart Rate 71 AXES SC 146 P 75 QRSd 84 QRS 78 QT 396 T 65 QTc 430 Conclusion Normal sinus rhythm Normal ECG Electronically signed by : Jd Freitas, 11/05/2020 07:31:08
[2020-11-02 22:10] VITALS: BP 113/89; PULSE 89; RESP 14; TEMP 36.9; O2SAT 99; BMI 27.3
--- NOTE | 2020-11-02 22:25 | XR_ITS ---
PROCEDURE: XR CHEST 2V CLINICAL HISTORY: cp COMPARISON: No exams were available for comparison FINDINGS: The cardiomediastinal silhouette and pulmonary vascularity are within normal limits. Slightly accentuated bronchovascular markings seen in the right right lower lobe a mild ill-defined pneumonic infiltrate is a definite possibility. The right upper lung field and left lung corbin are clear. There is no pleural fluid. IMPRESSION: Probable early right lower lobe ill-defined pneumonia Dictated by: Dr. Jerardo Dueñas MD 11/03/2020 07:35 Dr. Jerardo Dueñas MD in [place] 11/03/2020 07:35
[2020-11-02 22:36] LABS: Basophils # 0.1 K/mm3 (0-0.2); Chloride 103 mmol/L (98-107); Eosinophils # 0.2 K/mm3 (0.0-0.4); Eosinophils % 2.3 % (0.1-12.0); Hematocrit 44.3 % (42.0-52.0); Hemoglobin 14.8 g/dL (14.1-18.0); Lymphocytes % 24.8 % (10-50); Mean Corpuscular HGB Conc 33.4 g/dL (31.8-35.4); Mean Corpuscular Hemoglobin 30.5 pg (27.0-31.2); Mean Corpuscular Volume 91.3 fl (80-94); Mean Platelet Volume 7.2 fl (7.4-10.4); Monocytes # 0.8 K/mm3 (0.1-1.0); Monocytes % 9.2 % (1.7-9.3); Neutrophils # 5.2 K/mm3 (1.8-7.8); Neutrophils % 62.7 % (37.0-80.0); Platelet Count 346 K/mm3 (142-424); Potassium 3.9 mmoL/L (3.5-5.1); Red Blood Count 4.85 M/mm3 (4.60-6.20); Red Cell Distribution Width 13.4 % (11.5-17.5); Sodium 141 mmol/L (136-145); White Blood Count 8.2 K/mm3 (4.8-10.8)
[2020-11-02 22:39] LABS: Alanine Aminotransferase 25 U/L (12-78); Albumin Level 4.5 g/dl (3.5-5.0); Alkaline Phosphatase 57 U/L (38-126); Anion Gap 10.9 mEq/L (5-15); Aspartate Amino Transferase 28 U/L (17-59); Bilirubin,Direct 0.2 mg/dl (0.0-0.4); Bilirubin,Indirect 0.2 mg/dL (0.0-0.9); Bilirubin,Total 0.4 mg/dl (0.2-1.3); Bilirubin,Unconjugated 0.2 mg/dL (0.0-1.1); Blood Urea Nitrogen 18 mg/dl (9-20); Calcium 9.5 mg/dl (8.4-10.2); Carbon Dioxide 31 mmol/L (22.0-30.0); Creatinine Clearance Estimated 146 mL/min (50-200); Estimated Glomerular Filt Rate 111 ml/min (>60); GFR (African American) 134 ML/MIN (>60); Glucose 104 mg/dl (74-100)
[2020-11-02 22:56] LABS: Troponin I < 0.01 ng/ml (0.00-0.034)
[2020-11-02 23:00] VITALS: BP 111/79; PULSE 74; RESP 15; O2SAT 97
--- NOTE | 2020-11-02 23:02 | HMH.EDGENADL ---
ED Disposition Clinical Impression: Chest pain Qualifiers: Chest pain type: unspecified Qualified Code(s): R07.9 - Chest pain, unspecified Disposition: Home, Self-Care Condition on Discharge: Good Instructions: DI for Chest Pain Additional Instructions: Additional instructions for CHEST PAIN: See Dr. Everett as soon as possible for further evaluation. Call for appointment. Return immediately if worsening chest pain, vomiting, shortness of breath, fever, coughing of blood. Referrals: PCP,No [Primary Care Provider] - Conner Everett MD [Staff Physician] - - Critical Care Critical Care Time: No Attestation: On 11/02/20, the high probability of a clinically significant, sudden or life threatening deterioration of the following system(s) required my full and direct attention, intervention and personal management. The time I documented below is in addition to time spent performing reported procedures but includes the following listed in this critical care notation. Medical Decision Making - Mikel Inquiry Pt receiving controlled substance: No Vital Signs: 11/02/20 22:10 Temperature 98.5 F Temperature Source Oral Pulse Rate [Left Radial] 89 Respiratory Rate 14 Blood Pressure [Right Arm] 113/89 Blood Pressure Mean [Right Arm] 97 Blood Pressure Source [Right Arm] Automatic Cuff Blood Pressure Position [Right Arm] Sitting 02 Sat by Pulse Oximetry 99 Oxygen Delivery Method Room Air - Lab Data Lab Results 11/02/20 22:05: WBC 8.2, RBC 4.85, Hgb 14.8, Hct 44.3, MCV 91.3, MCH 30.5, MCHC 33.4, RDW 13.4, Plt Count 346, MPV 7.2 L, Neut % (Auto) 62.7, Lymph % (Auto) 24.8, [place] % (Auto) 9.2, Eos % (Auto) 2.3, Baso % (Auto) 1.0, Neut # (Auto) 5.2, Lymph # (Auto) 2.0, [place] # (Auto) 0.8, Eos # (Auto) 0.2, Baso # (Auto) 0.1 11/02/20 22:05: Sodium 141, Potassium 3.9, Chloride 103, Carbon Dioxide 31 H, Anion Gap 10.9, BUN 18, Creatinine 0.80, Estimated Creat Clear 146, Estimated GFR 111, Est GFR ( Amer) 134, Glucose 104 H, Calcium 9.5, Total Bilirubin 0.4, Direct Bilirubin 0.2, Conjugated Bilirubin 0.0, Indirect Bilirubin 0.2, Unconjugated Bilirubin 0.2, AST 28, ALT 25, Alkaline Phosphatase 57, Troponin I < 0.01, Total Protein 7.0, Albumin 4.5 Result diagrams: 11/02/20 22:05 11/02/20 22:05 Orders (Tests/Meds): ED MEDICATIONS Discontinued Medications Generic Name Dose Route Start Last Admin Trade Name Ed PRN Reason Stop Dose Admin Aspirin 324 mg 11/02/20 22:38 11/02/20 22:38 Aspirin 81mg Chewable Tablet PO 11/02/20 22:39 324 mg ONCE ONE Administration ORDERS Category Date Time Status Chest XR 2 view (NOT portable) [XR chest 2V] Stat Exams 11/02/20 22:25 Taken Troponin I Q3H Lab 11/03/20 01:30 Ordered Troponin I Q3H Lab 11/03/20 04:30 Ordered UA [Urinalysis and Microscopic] Stat Lab 11/02/20 22:35 Ordered - Radiology Data #1 Image(s): Chest Image Reviewed: Yes I reviewed the patient's radiology image Preliminary Findings: Normal/NAD - ECG Data Tracing #1 EKG interpreted by Román Blakely MD: Rhythm: sinus Rate: 71 [place]: normal Ectopy: none Conduction: normal ST Segment Changes: none T Wave Changes: none Q Waves: none No evidence of acute ischemia or injury Normal electrocardiogram - AINSLEY Score for Non-Stemi Age of Patient: 30-39 years old Heart Rate: 70-89 bpm Systolic Blood Pressure: 100-119 mmHg Serum Creatinine: 0.80-1.19 mg/dl CHF [place] Class: I-No CHF Other Risk Factors: None Non-Stemi Risk Score: 67 Medical Decision Narrative: Heart Pathway Score is: 1 Low Risk Recommended approach: Repeat troponin and if negative outpatient follow-up PULMONARY EMBOLISM RULE-OUT CRITERIA: 1. Age > 49? No 2. Pulse greater than 99/min? No 3. Room air pulse ox <95%? No 4. Hemoptysis? No 5. On estrogen? No 6. Prior diagnosis of DVT or PE? No 7. Surgery or trauma requiring endotracheal intubation or hospitalization in past 4 wks?
[2020-11-02 23:30] VITALS: BP 133/81; PULSE 75; RESP 17; O2SAT 96
[2020-11-02 23:51] VITALS: BP 134/64; PULSE 65; RESP 16; TEMP 36.6; O2SAT 97
== END 2020-11-02 23:52 | disposition home or self-care (01) ==
PROVIDERS: Emergency Provider Emergency Medicine
DX: R07.9 Chest pain, unspecified (principal); R06.02 Shortness of breath; R73.9 Hyperglycemia, unspecified; F17.210 Nicotine dependence, cigarettes, uncomplicated; Z88.2 Allergy status to sulfonamides; Z88.5 Allergy status to narcotic agent
CPT/HCPCS: 71046; 80048; 80076; 84484; 85025; 93005; 99282